=== PATIENT | female | born 1970 | race American Indian/Alaskan Native ===

== ENCOUNTER 2016-12-03 15:53 | Emergency (ER) | payer MEDICAID ==
[2016-12-03 16:01] VITALS: BP 155/95
[2016-12-03 16:42] LABS: Mean Corpuscular HGB Conc 30 % (30-34); Mean Corpuscular Hemoglobin 26 pg (28-32); Mean Corpuscular Volume 89 fl (79-97); Platelet Count 307 K/mm3 (140-440); Red Blood Count 3.82 M/mm3 (3.65-5.03); Red Cell Distribution Width 19.1 % (13.2-15.2); White Blood Count 6.4 K/mm3 (4.5-11.0)
[2016-12-03 16:47] LABS: Anion Gap 19 mmol/L; BUN/Creatinine Ratio 16.66; Blood Urea Nitrogen 20 mg/dL (7-17); Calcium 8.8 mg/dL (8.4-10.2); Carbon Dioxide 26 mmol/L (22-30); Chloride 104.9 mmol/L (98-107); Glucose 77 mg/dL (65-100); Potassium 4.3 mmol/L (3.6-5.0); Sodium 146 mmol/L (137-145)
[2016-12-03 16:54] LABS: Hematocrit 33.9 % (30.3-42.9)
[2016-12-03 16:58] LABS: Diff Status Complete; Eosinophils % (Auto) 0.2 % (0.0-4.3)
[2016-12-03 16:59] LABS: Basophils % (Auto) 0.9 % (0.0-1.8)
--- NOTE | 2016-12-03 20:48 | Emergency Department Report ---
ED Chest Pain HPI - General Chief Complaint: Chest Pain Stated Complaint: CHEST PAIN Time Seen by Provider: 12/03/16 20:42 Source: patient Mode of arrival: Ambulatory Limitations: No Limitations - History of Present Illness Initial Comments: This is a 46-year-old female who indicates that she's had some chest discomfort since approximately 10 AM. She denies any specific activity that caused her pain this morning. She states that she had been awake for about one or 2 hours for the pain began. It did not begin with food. She states that the pain has been continuous throughout the day. It does not change with activity or exertion or position. She does report somewhat of a burning sensation to it. She does give indication of occasional abdominal discomforts with a similar sensation. She denies any radiation to her back. She does indicate she does get some pain in her bilateral forearm areas well. She also attributes this to her chest pain. She denies any shortness of breath or nausea or vomiting associated with this. She denies any history of cardiac disease. Denies any hypertension diabetes or family history of cardiac issues. She does not smoke. She does not take aspirin regularly. She indicates that she has been told that she has an enlarged heart. She has not had specific evaluation to elucidate the reason for this however. She indicates that she has a primary physician here in town who she has seen once. - Related Data Previous Rx's Medication Instructions Recorded Last Taken Type Ranitidine HCl [Zantac 150 MG TAB] 150 mg PO BID PRN #60 tablet 12/03/16 Unknown Rx Allergies Allergy/AdvReac Type Severity Reaction Status Date / Time No Known Allergies Allergy Unverified 09/15/16 14:17 SIN score - Sin Score Age > 65: (0) No Aspirin use within the Past 7 Days: (0) No 3 or more CAD Risk Factors: (0) No 2 or more Angina events in past 24 hrs: (1) Yes Known CAD with more than 50% Stenosis: (0) No Elevated Cardiac Markers: (0) No ST Deviation Greater than 0.5mm: (0) No SIN Score: 1 ED Review of Systems ROS: Stated complaint: CHEST PAIN Other details as noted in HPI Comment: All other systems reviewed and negative Constitutional: denies: chills, fever Eyes: denies: eye pain, eye discharge, vision change ENT: denies: ear pain, throat pain Respiratory: denies: cough, shortness of breath, wheezing Cardiovascular: chest pain. denies: palpitations Endocrine: no symptoms reported Gastrointestinal: denies: abdominal pain, nausea, diarrhea Genitourinary: denies: urgency, dysuria, discharge Musculoskeletal: denies: back pain, joint swelling, arthralgia Skin: denies: rash, lesions Neurological: denies: headache, weakness, paresthesias Psychiatric: denies: anxiety, depression Hematological/Lymphatic: denies: easy bleeding, easy bruising ED Past Medical Hx - Past Medical History Additional medical history: ENLARGE HEART - Surgical History Past Surgical History?: No - Social History Smoking Status: Never Smoker Substance Use Type: None - Medications Home Medications: Home Medications Medication Instructions Recorded Confirmed Last Taken Type Ranitidine HCl [Zantac 150 MG TAB] 150 mg PO BID PRN #60 tablet 12/03/16 Unknown Rx ED Physical Exam - General Limitations: No Limitations General appearance: alert, in no apparent distress - Head Head exam: Present: atraumatic, normocephalic - Eye Eye exam: Present: normal appearance, EOMI. Absent: scleral icterus - ENT ENT exam: Present: normal exam, normal orophraynx, mucous membranes moist - Neck Neck exam: Present: normal inspection, full ROM. Absent: tenderness, lymphadenopathy - Respiratory Respiratory exam: Present: normal lung sounds bilaterally. Absent: respiratory distress - Cardiovascular Cardiovascular Exam: Present: regular rate, normal rhythm. Absent: systolic murmur, diastolic murmur, rubs, gallop - GI/Abdominal GI/Abdominal exam: Present: soft, normal bowel sounds. Absent: distended, tenderness - Extremities Exam Extremities exam: Present: normal inspection, full ROM, normal capillary refill. Absent: tenderness, pedal edema, calf tenderness - Back Exam Back exam: Present: normal inspection. Absent: tenderness, CVA tenderness (R), CVA tenderness (L) - Neurological Exam Neurological exam: Present: alert, oriented X3 - Psychiatric Psychiatric exam: Present: normal affect, normal mood - Skin Skin exam: Present: warm, dry, intact, normal color. Absent: rash ED Course Vital Signs 12/03/16 15:59 Temperature 97.4 F L Pulse Rate 80 Respiratory 18 Rate Blood Pressure 155/95 O2 Sat by Pulse 100 Oximetry - Reevaluation(s) Reevaluation #1: 12/03/16 20:42 ECG at 1603 demonstrating normal sinus rhythm at 84 bpm with normal LA and QRS. Normal axis is noted. Otherwise unremarkable ECG. Reevaluation #2: 12/03/16 22:05 This patient has an unremarkable examination for me. Blood levels demonstrate slight anemia with a hemoglobin of 10.0. Cardiac enzymes 3 are negative. EKG is unremarkable as well. Patient does not have risk factors. She is perc negative. I suspicion for PE is very low. She has somewhat of an odd affect at baseline. She is difficult for me to really give us good appreciation for the legitimacy of her complaint. She is noted to be snickering time and almost thinks the interview with me is comical. I have a low suspicion for cardiac etiology. Chest x-ray is negative for acute pathology. She does demonstrate some mild cardiomegaly. Again she has been told this before. She does have a primary physician here in town. She has family with her as well that indicated they can help her access her primary physician next week. I feel this is a more appropriate to workup then keeping in the hospital for chest pain rule out. Again my suspicion is low for cardiac etiology. I will try some Zantac for home. She was given Mylanta here. I did give her normal precautions regarding dyspepsia. She was given an aspirin prophylactically as well. Vital signs are normal. I feel she is safe for home. ED Medical Decision Making - Lab Data Result diagrams: 12/03/16 16:08 12/03/16 16:08 Critical care attestation.: If time is entered above; I have spent that time in minutes in the direct care of this critically ill patient, excluding procedure time. ED Disposition Clinical Impression: Chest pain Qualifiers: Chest pain type: precordial pain Qualified Code(s): R07.2 - Precordial pain Anemia Qualifiers: Anemia type: unspecified type Qualified Code(s): D64.9 - Anemia, unspecified Disposition: DISCHARGED TO HOME OR SELFCARE Is pt being admited?: No Does the pt Need Aspirin: No Condition: Stable Instructions: Chest Pain (ED) Additional Instructions: ED healthy diet. Avoid spicy foods. Take antacid as needed for discomfort. Follow with your doctor for continued evaluation as well as possible stress testing. Prescriptions: Ranitidine HCl [Zantac 150 MG TAB] 150 mg PO BID PRN #60 tablet PRN Reason: Pain Referrals: PRIMARY CARE, [Primary Care Provider] - 3-5 Days Time of Disposition: 21:59
[2016-12-03] MEDS ORDERED: ASPIRIN PO ONE (20:49)
[2016-12-03] MEDS ORDERED: ALUM-MAG HYDROX-SIMETH 200-200-20MG/5ML PO ONE (21:58)
--- NOTE | 2016-12-04 09:39 | XRay Report ---
CHEST XRAY, 2 VIEWS: History: Chest pain. Findings: There is mild cardiomegaly. Pulmonary vessels are within normal limits. The lungs are clear and fully expanded. No infiltrate, pleural effusion or pneumothorax. Normal thoracic cage. IMPRESSION: Mild cardiomegaly.
== END 2016-12-04 04:06 | disposition home or self-care (01) ==
LOC: ED 15:53
DX: D64.9 Anemia, unspecified (principal); R07.2 Precordial pain
CPT/HCPCS: 36415; 71020; 80048; 84484; 85025; 93005; 93010; 99285